=== PATIENT | female | born 2000 | race African-American/Black ===

== ENCOUNTER 2019-07-10 00:33 | Emergency (ER) | payer MEDICAID ==
[~2019-07-10] VITALS: Ht 152.4 cm; Wt 56.0 kg
[~2019-07-10 00:33] MED LIST: IBUPROFEN
== END 2019-07-10 01:30 | disposition left against medical advice (07) ==
LOC: ER 00:33
DX: Z53.21 Procedure and treatment not carried out due to patient leaving prior to being seen by health care provider (principal)